=== PATIENT | male | born 1960 | race Caucasian/White ===

== ENCOUNTER 2017-01-19 14:06 | Emergency (ER) | payer OTHER ==
[~2017-01-19 14:06] MED LIST: GLUCOPHAGE500 M1 PO; GLUCOTROL PO; LISINOPRIL PO; LOTREL 10-20 M1 EACH PO
== END 2017-01-19 14:30 | disposition home or self-care (01) ==
LOC: SED 14:06
DX: S76.111A Strain of right quadriceps muscle, fascia and tendon, initial encounter (principal); E11.9 Type 2 diabetes mellitus without complications; I10 Essential (primary) hypertension; X58.XXXA Exposure to other specified factors, initial encounter; Y92.009 Unspecified place in unspecified non-institutional (private) residence as the place of occurrence of the external cause
CPT/HCPCS: 99283